=== PATIENT | female | born 1970 | race Caucasian/White ===

== ENCOUNTER → 2021-11-30 | Day surgery (SDC) | payer OTHER ==
[~2021-11-30] MED LIST: B12 INJ; BUSPIRONE HCL10 MG PO; BUSPIRONE HCL5 MG PO; CETIRIZINE HCL10 MG; CLONAZEPAM1 MG PO; FAMOTIDINE20 MG PO; LAMOTRIGINE100 MG PO; LEXAPRO20 MG PO; LISINOPRIL10 MG PO; LORTAB 10 MG-3473 ML PO; OMEPRAZOLE40 MG PO; PROPOFOL IV EMULSION 10 MG/ML 20 ML VIAL ONE; QUETIAPINE FUM100 MG PO; TEMAZEPAM30 MG PO
[2021-11-30 15:08] VITALS: BP 118/76
== END | disposition home or self-care (01) ==
LOC: OR 11:30
PROVIDERS: ATTEND Internal Medicine Gastroenterology
DX: Z12.11 Encounter for screening for malignant neoplasm of colon (principal); D12.2 Benign neoplasm of ascending colon; D12.3 Benign neoplasm of transverse colon; D12.4 Benign neoplasm of descending colon; K64.8 Other hemorrhoids; K62.5 Hemorrhage of anus and rectum; R19.4 Change in bowel habit; K21.9 Gastro-esophageal reflux disease without esophagitis; K92.0 Hematemesis; I10 Essential (primary) hypertension; F31.9 Bipolar disorder, unspecified; Z79.899 Other long term (current) drug therapy; Z87.891 Personal history of nicotine dependence
CPT/HCPCS: 45384; 45385; 93005; J2704; 45378